=== PATIENT | male | born 1960 | race Caucasian/White ===

== ENCOUNTER 2017-05-13 02:53 | Emergency (ER) | payer OTHER ==
[~2017-05-13] VITALS: Ht 182.9 cm; Wt 86.4 kg
[2017-05-13] MEDS ORDERED: VALIUM5 MG PO (03:33)
[2017-05-13] MEDS ORDERED: ULTRAM50 MG PO (03:33)
[2017-05-13 05:23] VITALS: BP 128/69
== END 2017-05-13 05:23 | disposition home or self-care (01) ==
LOC: EME 02:53
DX: M54.5 Low back pain (principal); M62.830 Muscle spasm of back
CPT/HCPCS: 99281; 99284; J1885